=== PATIENT | male | born 1930 | race Caucasian/White ===

== ENCOUNTER 2017-08-17 07:53 | Emergency (ER) | payer MEDICARE ==
[~2017-08-17] VITALS: Ht 180.3 cm; Wt 72.6 kg
[~2017-08-17 07:53] MED LIST: ASPIRN; DOXY100T PO; MULTIVITAMIN
[2017-08-17 07:57] VITALS: BP 140/78; PULSE 67; RESP 16; TEMP 98.8; O2SAT 98
--- NOTE | 2017-08-17 08:26 | PD ---
HPI Chief Complaint: Cold / Flu Symptoms Time Seen by Provider: 08:14 Travel History International Travel<30 days: No Contact w/Intl Traveler<30days: No Traveled to known affect area: No History of Present Illness HPI Patient is a pleasant and well-appearing 87-year-old male presents to the emergency room for evaluation of possible influenza. Patient reports that since last night, he has had a nonproductive but persistent cough. Patient reports concerns for possible influenza and request to be tested. Patient denies any fever or chills, denies any nausea vomiting. 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 Patient denies any chest pain or shortness of breath, no other complaints at this time. PFSH Past Medical History Medical History: Denies Significant Hx Cardiovascular Problems: No Diminished Hearing: No Gastrointestinal Disorders: No Genitourinary: No Musculoskeletal: No Neurologic: No Psychiatric: No Reproductive: No Respiratory: No Integumentary: No Influenza Vaccination: Yes Past Surgical History Surgical History: No Previous Surgery Abdominal Surgery: No Cardiac Surgery: No Ear Surgery: No Endocrine Surgery: No Eye Surgery: No Genitourinary Surgery: No Gynecologic Surgery: No Neurologic Surgery: No Oral Surgery: No Thoracic Surgery: No Social History Alcohol Use: Yes (wine occasional) Tobacco Use: No Substance Use: No Allergies-Medications (Allergen,Severity, Reaction): Coded Allergies: No Known Allergies (Unverified Adverse Reaction, Unknown, 08/17/17) Reported Meds & Prescriptions Reported Meds & Active Scripts Active Reported [Aspirn] 81 Mg DAILY [Multivitamin] DAILY Review of Systems General / Constitutional: No: Fever Eyes: No: Visual changes HENT: No: Headaches Cardiovascular: No: Chest Pain or Discomfort Respiratory: Positive: Cough, No: Shortness of Breath, Wheezing Gastrointestinal: No: Abdominal Pain Genitourinary: No: Dysuria Musculoskeletal: No: Pain Skin: No Rash Neurologic: No: Weakness Psychiatric: No: Depression Endocrine: No: Polydipsia Hematologic/Lymphatic: No: Easy Bruising Physical Exam Narrative GENERAL: No acute distress, well-appearing SKIN: Focused skin assessment warm/dry. HEAD: Atraumatic. Normocephalic. EYES: No injection or drainage. ENT: No nasal bleeding or discharge. Mucous membranes pink and moist. NECK: Trachea midline. No JVD. CARDIOVASCULAR: Regular rate and rhythm. No murmur appreciated. RESPIRATORY: No accessory muscle use. Clear to auscultation. Breath sounds equal bilaterally. GASTROINTESTINAL: Abdomen soft, non-tender, nondistended. Hepatic and splenic margins not palpable. MUSCULOSKELETAL: No obvious deformities. No clubbing. No cyanosis. No edema. NEUROLOGICAL: Awake and alert. PSYCHIATRIC: Appropriate mood and affect; insight and judgment normal. Data Data Last Documented VS Vital Signs Date Time Temp Pulse Resp B/P (MAP) Pulse Ox O2 Delivery O2 Flow Rate FiO2 08/17/17 07:57 98.8 67 16 140/78 (98) 98 Orders Orders Influenzae A/B Antigen (08/17/17 08:18) Chest, Pa & Lat (08/17/17 08:21) MDM Medical Decision Making Medical Screen Exam Complete: Yes Emergency Medical Condition: Yes Medical Record Reviewed: Yes Interpretation(s) Vital Signs Date Time Temp Pulse Resp B/P (MAP) Pulse Ox O2 Delivery O2 Flow Rate FiO2 08/17/17 07:57 98.8 67 16 140/78 (98) 98 Differential Diagnosis Viral syndrome, influenza, pneumonia Narrative Course 87-year-old well-appearing male who presents the emergency room for evaluation of possible influenza. Influenza swab was ordered as well as x-ray of the chest as he does have nonproductive cough since last night. During the course of the patients emergency department visit, the patients history, examination, and differential diagnosis were reviewed with the patient. Microbiology Date/Time Source Procedure Growth Status 08/17/17 08:24 Nasal Washing Influenza Types A,B Antigen ([place]) - Final NEGATIVE FOR FLU A AND B ANTIGEN.... Complete Radiology studies were reviewed and remarkable for: X-ray of the chest shows no evidence of pneumonia. Results of influenza as well as x-ray was reviewed with patient. Patient with most likely viral syndrome. Signs and symptoms of when to return to the emergency room was reviewed with patient in detail. Diagnosis Primary Impression: Viral syndrome Patient Instructions: General Instructions Additional Instructions: Please provide patient with a copy of their lab work and studies at discharge* * Please follow up with your primary care doctor in 2-3 days Return to the ER if symptoms worsen or progress Return to the ER as needed Disposition: 01 DISCHARGE HOME Condition: Stable Tina Burns DO Aug 17, 2017 08:26
--- NOTE | 2017-08-17 09:20 | RADRPT ---
EXAM DATE/TIME: 08/17/2017 09:07 [facility] COMPARISON: No previous studies available for comparison. INDICATIONS : Dry cough since last night. MEDICAL HISTORY : None. SURGICAL HISTORY : None. ENCOUNTER: Initial ACUITY: 2 days PAIN SCORE: 0/10 LOCATION: Bilateral chest FINDINGS: PA and lateral views of the chest demonstrate the lungs to be symmetrically aerated without evidence of mass, infiltrate or effusion. The cardiomediastinal contours are unremarkable. Osseous structure s are intact. CONCLUSION: No acute disease. There is no evidence of pneumonia. Ernesto Sands MD on August 17, 2017 at 9:17 Board Certified Radiologist. This report was verified electronically.
== END 2017-08-17 09:57 | disposition home or self-care (01) ==
LOC: PHEFT 07:53
DX: B34.9 Viral infection, unspecified (principal); Z79.82 Long term (current) use of aspirin
CPT/HCPCS: 71046; 87804; 99284